=== PATIENT | female | born 1995 | race Caucasian/White ===

== ENCOUNTER 2023-08-11 01:57 | Emergency (ER) | payer MEDICAID, OTHER ==
[~2023-08-11] VITALS: Ht 167.6 cm; Wt 97.0 kg
[2023-08-11 02:13] VITALS: BP 119/74; PULSE 114; RESP 18; TEMP 98.6; O2SAT 99
[2023-08-11 05:12] LABS: CLARITY URINE CLOUDY (CLEAR); COLOR URINE YELLOW (YELLOW)
[2023-08-11 05:13] LABS: GLUCOSE URINE NEGATIVE (NEGATIVE); KETONES URINE NEGATIVE (NEGATIVE); PROTEIN URINE NEGATIVE (NEGATIVE); SPECIFIC GRAVITY URINE 1.023 (1.005-1.030)
[2023-08-11 05:14] LABS: OCCULT BLOOD URINE TRACE (NEGATIVE)
[2023-08-11 05:15] LABS: NITRITE URINE NEGATIVE (NEGATIVE)
[2023-08-11 05:16] LABS: LEUKOCYTE ESTERASE URINE 1+ (NEGATIVE)
[2023-08-11 05:21] LABS: SQUAMOUS EPITHELIAL CELL URINE 1+ /lpf (RARE/1+)
[2023-08-11 05:27] LABS: WBC URINE 0-2 /hpf (0-2)
[2023-08-11 05:28] LABS: BACTERIA URINE 1+; RBC URINE 0-2 /hpf (0-2)
== END 2023-08-11 04:34 | disposition left against medical advice (07) ==
LOC: ER 03:46
DX: Z53.21 Procedure and treatment not carried out due to patient leaving prior to being seen by health care provider (principal)
CPT/HCPCS: 71045; 81003; 81025; 93005; 99281; 99285